=== PATIENT | female | born 1995 | race Two or more races ===

== ENCOUNTER 2022-10-11 13:18 | Emergency (ER) | payer MEDICAID, OTHER ==
[~2022-10-11] VITALS: Ht 160 cm; Wt 121.3 kg
[~2022-10-11 13:18] MED LIST: HYDR-4383 PO; NITR100C6 PO; PHEN-786 PO
[2022-10-11 14:24] LABS: URINE HCG POSITIVE (NEG)
[2022-10-11 14:59] LABS: CLARITY,URINE SLIGHTLY CLOUDY (Clear); COLOR,URINE YELLOW (Yellow); GLUCOSE, URINE NEGATIVE (Neg); KETONES,URINE NEGATIVE (Neg); LEUKOCYTE ESTERASE ,URINE NEGATIVE (Neg); NITRITES, URINE NEGATIVE (Neg); OCCULT BLOOD,URINE NEGATIVE (Neg); PROTEIN,URINE NEGATIVE (Neg); UROBILINOGEN,URINE 0.2 E.U/dL (0.2-1.0)
[2022-10-11 15:00] LABS: UA COLLECTION TYPE CLN CATCH MIDSTREAM
[2022-10-11 15:10] LABS: MUCUS STRANDS FEW /LPF (Neg); SQUAMOUS EPITHELIAL CELL,UR MODERATE /LPF (FEW)
[2022-10-11 15:11] LABS: BACTERIA,URINE FEW /HPF (Neg); RBC,URINE 0-2 /HPF (0-2); TRANSITIONAL EPI CELLS,URINE FEW /HPF; WBC,URINE 0-4 /HPF (0-4)
[2022-10-11 15:12] LABS: BASOPHILS % (AUTO) 0.6 % (0-1); EOSINOPHILS # (AUTO) 0.1 X10'3 (0-0.9); EOSINOPHILS % (AUTO) 1.9 % (0-6); HEMATOCRIT 37.5 % (35.0-45.0); HEMOGLOBIN 12.5 g/dl (12.0-16.0); LYMPHOCYTES # (AUTO) 1.9 X10'3 (1.1-4.8); MEAN CORPUSCULAR HEMOGLOBIN 28.8 PG (27.0-31.0); MEAN CORPUSCULAR HGB CONC 33.3 g/dL (33.0-36.5); MEAN CORPUSCULAR VOLUME 86.4 FL (78-98); MEAN PLATELET VOLUME 8.3 FL (7.4-10.4); MONOCYTES # (AUTO) 0.5 X10'3 (0-0.9); MONOCYTES % (AUTO) 6.8 % (2-12); NEUTROPHILS # (AUTO) 4.8 X10'3 (1.8-7.7); NEUTROPHILS % (AUTO) 64.7 % (42-75); PLATELET COUNT 250 X10'3 (140-440); RED BLOOD COUNT 4.34 X10'6 (4.20-5.60); WHITE BLOOD COUNT 7.5 X10'3 (4.5-11.0)
[2022-10-11 15:56] VITALS: BP 130/63
[2022-10-11 16:20] LABS: ALANINE AMINOTRANSFERASE 48 U/L (12-78); ALBUMIN 3.2 G/DL (3.4-5.0); ALKALINE PHOSPHATASE 52 IU/L (46-116); ANION GAP 7 (8-16); ASPARTATE AMINO TRANSFERASE 19 U/L (10-37); BILIRUBIN,TOTAL 0.2 MG/DL (0.1-1.0); BLOOD UREA NITROGEN 5 MG/DL (7-18); BUN/CREATININE RATIO 7.5 (10.0-20.0); CALCIUM 8.7 MG/DL (8.5-10.1); CHLORIDE 107 MMOL/L (99-107); CREATININE 0.67 MG/DL (0.40-0.90); GLUCOSE 92 MG/DL (70-104); POTASSIUM 3.8 MMOL/L (3.5-5.1); SODIUM 137 MMOL/L (135-145); TOTAL CARBON DIOXIDE 23.1 MMOL/L (24-32); TOTAL PROTEIN 6.5 G/DL (6.4-8.2); eGFR > 90 ML/MIN
[2022-10-11 16:45] LABS: BETA HCG,QUANTITATIVE 36584 mIU/ml
== END 2022-10-11 17:52 | disposition left against medical advice (07) ==
LOC: ER 13:19
DX: K21.9 Gastro-esophageal reflux disease without esophagitis (principal); R42 Dizziness and giddiness; R06.02 Shortness of breath; G43.909 Migraine, unspecified, not intractable, without status migrainosus; F31.9 Bipolar disorder, unspecified; Z86.2 Personal history of diseases of the blood and blood-forming organs and certain disorders involving the immune mechanism; Z79.899 Other long term (current) drug therapy
CPT/HCPCS: 36415; 76801; 76817; 80053; 81001; 81025; 84443; 84702; 85025; 93005; 99284

== ENCOUNTER 2023-07-04 09:27 | Outpatient (CLI) | payer MEDICAID ==
[2023-07-04] MEDS ORDERED: iohexol 350MG/ML 100ml bottle IV ONE (09:41)
== END 2023-07-04 23:59 | disposition home or self-care (01) ==
LOC: RAD 09:27
DX: R06.02 Shortness of breath (principal)
CPT/HCPCS: 71275; J3490; Q9967

== ENCOUNTER 2023-09-04 13:22 | Outpatient (CLI) | payer MEDICAID | END 2023-09-04 23:59 | disposition home or self-care (01) | LOC: RAD 13:22 | PROVIDERS: ATTEND Family Medicine | DX: K76.0 Fatty (change of) liver, not elsewhere classified (principal); R10.9 Unspecified abdominal pain; R16.0 Hepatomegaly, not elsewhere classified | CPT/HCPCS: 76700 ==

== ENCOUNTER 2023-09-06 13:30 | Emergency (ER) | payer MEDICAID ==
[~2023-09-06] VITALS: Ht 160 cm; Wt 127.0 kg
[2023-09-06 13:36] VITALS: BP 131/83; PULSE 85; RESP 16; TEMP 97.9; O2SAT 98
== END 2023-09-06 16:29 | disposition left against medical advice (07) ==
LOC: ER 13:31
DX: R19.7 Diarrhea, unspecified (principal); Z53.21 Procedure and treatment not carried out due to patient leaving prior to being seen by health care provider